=== PATIENT | female | born 1965 | race Caucasian/White ===

== ENCOUNTER 2017-12-08 14:09 | Emergency (ER) | END 2017-12-08 18:10 | disposition home or self-care (01) ==

== ENCOUNTER 2019-05-17 15:51 | Emergency (ER) | payer BC ==
[~2019-05-17] VITALS: Ht 149.9 cm; Wt 66.0 kg
[~2019-05-17 15:51] MED LIST: ALPR0.254 PO; BENZ-6 PO; CARI350T29 PO; CITA10TA5 PO; GABA300C16 PO; HYDR-3980 PO; HYDR12.58 PO; IBUP-1542 PO; LORA10TA3 PO; METF850T13 PO; METO-319 PO; METO-429 PO; NAPR-985 PO; TOLT2CAP22 PO
[2019-05-17 15:59] VITALS: Ht 149.9 cm; Wt 66.0 kg
[2019-05-17] MEDS ORDERED: KETOROLAC 15 MG INJ IV STA (16:31)
[2019-05-17] MEDS ORDERED: ONDANSETRON 4 MG INJ IV STA (16:31)
[2019-05-17] MEDS ORDERED: POTASSIUM CHLORIDE (SR) 20 MEQ TAB PO STA (17:54)
[2019-05-17 18:00] VITALS: BP 151/83; PULSE 78; RESP 18
== END 2019-05-17 18:24 | disposition home or self-care (01) ==
LOC: E/R 15:51
DX: K76.0 Fatty (change of) liver, not elsewhere classified (principal); E87.6 Hypokalemia; I10 Essential (primary) hypertension; E11.9 Type 2 diabetes mellitus without complications; F17.210 Nicotine dependence, cigarettes, uncomplicated; Z79.84 Long term (current) use of oral hypoglycemic drugs
CPT/HCPCS: 36415; 76705; 80053; 81003; 83690; 85025; 96374; 96375; 99285; J1885; J2405; Z7610